=== PATIENT | female | born 1995 | race Asian ===

== ENCOUNTER 2016-08-13 11:29 | Emergency (ER) | payer OTHER ==
[~2016-08-13] VITALS: Ht 165.1 cm; Wt 54.4 kg
[~2016-08-13 11:29] MED LIST: BCPILLS PO; PHEN-582 PO
[2016-08-13 11:39] VITALS: TEMP 36.7; Ht 165.1 cm; Wt 54.4 kg
[2016-08-13] MEDS ORDERED: [UNRECOGNIZED DRUG - CODE] PO (11:44)
[2016-08-13 12:15] LABS: MANUAL MICROSCOPIC REQUIRED? YES; URINE APPEARANCE SL CLOUDY (CLEAR); URINE COLOR ORANGE
[2016-08-13 12:16] LABS: REVIEW REQ? NO; SULFASALICYLIC ACID NEG (NEG)
[2016-08-13 12:17] LABS: URINE SPECIFIC GRAVITY 1.025 (1.000-1.030)
[2016-08-13 12:20] LABS: URINE BACTERIA 4+ (NEG); URINE WBC >30 /hpf (0-5)
[2016-08-13] MEDS ORDERED: SULF800T23 PO (12:50)
[2016-08-13 13:01] VITALS: BP 114/74; PULSE 87; O2SAT 100
--- NOTE | 2016-08-13 16:59 | EMERGENCY ROOM VISIT NOTE ---
ED Visit Note First contact with patient: 11:44 CHIEF COMPLAINT: Urinary frequency and burning HISTORY OF PRESENT ILLNESS: This 20-year-old female has had increased frequency of urination, burning pain with urination, and a feeling of incomplete voiding for the last 48 hours. She denies any hematuria. She is passing a small volume of urine with each episode of voiding. She denies back pain, fever, or vaginal discharge at this time. No fevers, chills, sweats, nausea, or vomiting. No treatment yet. Her last UTI was more than 4 months ago, and her current symptoms are similar. A male friend accompanies her today. REVIEW OF SYSTEM: HEENT: No dizziness, visual problems, hearing loss, or tinnitus. There is no difficulty swallowing and no oral lesions are present. PULMONARY: No cough, shortness of breath, sputum production or hemoptysis. CARDIOVASCULAR: No chest pain, palpitations, shortness of breath or peripheral edema. GASTROINTESTINAL: No diarrhea, constipation, nausea, vomiting, or abdominal pain. GENITOURINARY: Positive dysuria, frequency, urgency and hematuria. NEUROLOGIC: No weakness, muscle tenderness, epilepsy or history of neurological problems. MUSCULOSKELETAL: No history of joint tenderness/swelling. SKIN: No rashes or lesions. ENDOCRINE: No history of diabetes, thyroid disorders, or abnormal hair growth. Supplemental sheet was not completed. Previous surgeries: None Medical history: Significant for previous UTI Current medications: OTC Pyridium, oral contraceptives Allergies: NKDA Family history: Noncontributory. SOCIAL HISTORY: Patient lives with roommates. [employer] student. Single. No tobacco use. PHYSICAL EXAM: Vital Signs: Temperature 36.7. General: Well-developed, well- nourished, young female, in no acute distress. No obvious discomfort. She is sitting on the bed. Alert and oriented. Skin: Warm and dry with good turgor. No rashes or lesions. No ecchymosis or erythema. The patient is not diaphoretic. No abrasions. Heart: Heart RRR. No MGR. Peripheral pulses are 2 +. lungs: Lungs are clear to auscultation. No crackles rhonchi or wheezing. Good air movement. The patient is able to take a deep breath. Abdomen: Abdomen was inspected, auscultated, and palpated. Bowel sounds present x 4. Soft, suprapubic discomfort to palpation. No hepato-splenomegaly. No masses noted. No CVA tenderness EMERGENCY DEPARTMENT COURSE: UA shows positive leukocytes and blood. Nitrate test is inconclusive due to Pyridium use. Cultures were sent DIAGNOSIS: UTI DISCHARGE INSTRUCTIONS & TREATMENT: Patient was educated regarding today's findings. Conservative care measures were discussed. Maintain hydration. Tylenol and Motrin every 6 hours as needed for discomfort. Patient was prescribed Bactrim DS b.i.d. x5 days. Return to the ED or followup with her PCP if symptoms are not improving over the next 3 days. Return sooner for any fevers or worsening back pain/vomiting. She may continue with the OTC Pyridium. Current/Historical Medications Scheduled Control Pills ( Control Pills), 1 TAB PO DAILY Phenazopyridine Hcl (Urinary Pain Relief), 2 TAB PO DIRECTED Sulfa/Trimethoprim (Bactrim Ds 800MG/160MG), 1 TAB PO BID Allergies Coded Allergies: No Known Allergies (Unverified , 08/13/16) Vital Signs Date Time Temp Pulse Resp B/P Pulse Ox O2 Delivery O2 Flow Rate FiO2 08/13/16 13:01 87 20 114/74 100 08/13/16 11:39 36.7 80 18 113/77 95 Room Air Laboratory Results Test 08/13/16 11:50 Urine Color ORANGE Urine Appearance SL CLOUDY (CLEAR) Urine pH (4.5-7.5) Urine Specific [place] 1.025 (1.000-1.030) Urine Protein NEG (NEG) Urine Glucose (UA) (NEG) Urine Ketones (NEG) Urine Occult Blood (NEG) Urine Nitrite (NEG) Urine Bilirubin (NEG) Urine Urobilinogen (NEG) Urine Leukocyte Esterase (NEG) Urine RBC 10-30 /hpf (0-4) Urine WBC >30 /hpf (0-5) Urine Epithelial Cells >30 /lpf (0-5) Urine Bacteria 4+ (NEG) Departure Information Impression Primary Impression: Urinary tract infection Dispostion Home / Self-Care Condition GOOD Prescriptions Sulfa/Trimethoprim (Bactrim Ds 800MG/160MG) Tab 1 TAB PO BID, #10 TAB Prov: Spencer Calderón,P.A. 08/13/16 Forms HOME CARE DOCUMENTATION FORM, MOTRIN USE, TYLENOL USE, IMPORTANT VISIT INFORMATION Patient Instructions A Signature Page, UTI, My [facility] Additional Instructions Maintain hydration Continue using your OTC urinary tablets Add Bactrim one tablet 2 times a day 5 days Tylenol and Motrin every 6 hours as needed for discomfort Follow-up with your PCP as needed
== END 2016-08-13 13:02 | disposition home or self-care (01) ==
LOC: C.EDB 11:30 → C.EDD 13:02
DX: N39.0 Urinary tract infection, site not specified (principal); Z79.3 Long term (current) use of hormonal contraceptives